=== PATIENT | male | born 1975 ===

== ENCOUNTER 2018-07-07 19:45 | Emergency (ER) | payer OTHER ==
[2018-07-07 20:55] VITALS: BP 122/68; PULSE 57; RESP 17; TEMP 99; O2SAT 98
--- NOTE | 2018-07-07 22:33 | ED PDOC ---
Lower Extremity Pain/Injury Time Seen by Provider: 07/07/18 21:43 Chief Complaint (Nursing): Lower Extremity Problem/Injury Chief Complaint (Provider): Lower Extremity Problem/Injury History Per: Patient History/Exam Limitations: no limitations Onset/Duration Of Symptoms: Hrs (x 14) Current Symptoms Are (Timing): Still Present Additional Complaint(s): 43 year old male presents to the ED with left knee pain sudden onset at 7 am today, about 14 hours ago. Patient reports he was working when he fell off a platform about six feet high. He is now experiencing a lot of pain with walking and touching knee since injury. He did not take any medications for pain and rested all day today. Patient also sustained abrasions to the face. His last tetanus was 4 years ago when he was previous injured at work. Denies headache, focal weakness or numbness, nausea, vomiting and dizziness. PMD: none provided - Knee Description Of Injury: Fell Past Medical History Reviewed: Historical Data, Nursing Documentation, Vital Signs Vital Signs: Last Vital Signs Temp 99 F 07/07/18 20:51 Pulse 57 L 07/07/18 20:51 Resp 17 07/07/18 20:51 BP 122/68 07/07/18 20:51 Pulse Ox 98 07/07/18 20:51 - Medical History PMH: No Chronic Diseases - Surgical History Surgical History: No Surg Hx - Family History Family History: States: Unknown Family Hx - Home Medications Home Medications: Ambulatory Orders Medication Instructions Recorded RX: Ibuprofen [Motrin Tab] 600 mg PO Q8 PRN #30 tab 07/07/18 - Allergies Allergies/Adverse Reactions: Allergies Allergy/AdvReac Type Severity Reaction Status Date / Time No Known Allergies Allergy Verified 07/07/18 20:54 Review of Systems ROS Statement: Except As Marked, All Systems Reviewed And Found Negative Gastrointestinal: Negative for: Nausea, Vomiting Musculoskeletal: Positive for: Leg Pain (knee pain) Skin: Positive for: Other (abrasions to face) Neurological: Negative for: Weakness, Numbness, Headache, Dizziness Physical Exam - Reviewed Nursing Documentation Reviewed: Yes Vital Signs Reviewed: Yes - Physical Exam Appears: Positive for: In Acute Distress (mild painful distress) Head Exam: Positive for: NORMAL INSPECTION, NORMOCEPHALIC Skin: Positive for: Warm, Dry (dry 2 x 3 cm irregular shaped, hemostatic abrasi on to left chin; small abrasion to nasal bridge). Negative for: Rash Eye Exam: Positive for: EOMI, Normal appearance, PERRL Extremity: Positive for: Tenderness (to patella and bilateral soft tissue; distally neurovascularly intact), Swelling (diffuse edematous and ecchymotic left knee), Other (Extension of left knee intact; flexion limited to sixty degrees secondary to pain). Negative for: Normal ROM, Deformity (or ballottement) - ECG O2 Sat by Pulse Oximetry: 98 (RA) Pulse Ox Interpretation: Normal Medical Decision Making Medical Decision Makin:55 Impression: knee injury; fracture vs contusion vs sprain Initial Plan: --left knee x-ray --Ice --Motrin 600 mg PO 0025 Knee x-ray: Findings: 3 views of the left knee were obtained. The osseous structures are intact, without evidence of fracture or dislocation. The soft tissues are within normal limits. Impression: No acute findings. DW pt and son findings. Knee immobilizer and crutches WBAT. Possibility of internal derangement discussed as well as need for urgent ortho followup and initial conservative management. Scribe Attestation: Documented by Haley Rollins acting as a scribe for Kamini Sotelo MD Provider Scribe Attestation: All medical record entries made by the Scribe were at my direction and personally dictated by me. I have reviewed the chart and agree that the record accurately reflects my personal performance of the history, physical exam, medical decision making, and the department course for this patient. I have also personally directed, reviewed, and agree with the discharge instructions and disposition. Disposition - Clinical Impression Clinical Impression: Knee injury - Disposition Referrals: Viral Trujillo MD [Staff Provider] - Disposition: Routine/Home Disposition Time: 00:55 Condition: STABLE Additional Instructions: VISITA ORTHOPEDICO EN 2-3 MADRIGAL A CHEQAR DE NUEVO Prescriptions: RX: Ibuprofen [Motrin Tab] 600 mg PO Q8 PRN #30 tab PRN Reason: Pain, Moderate (4-7) Instructions: Knee Immobilizer (DC), Contusion (DC), Knee Sprain (DC) Forms: [facility] ED School/Work Excuse Print Language: DANISH
--- NOTE | 2018-07-08 10:45 | RAD ---
Date of service: 07/07/2018 PROCEDURE: Left Knee Radiographs. HISTORY: Pain. COMPARISON: None. FINDINGS: BONES: Bone alignment and mineralization are normal. There is no acute displaced fracture or bone destruction. JOINTS: Normal. No osteoarthritis. JOINT EFFUSION: There is a small suprapatellar joint effusion. OTHER FINDINGS: None. IMPRESSION: No acute fracture or dislocation. Small suprapatellar joint effusion.
== END 2018-07-08 01:15 | disposition home or self-care (01) ==
LOC: H.ER 19:45
DX: S89.92XA Unspecified injury of left lower leg, initial encounter (principal); W17.89XA Other fall from one level to another, initial encounter; Y99.0 Civilian activity done for income or pay